=== PATIENT | female | born 1940 | race Caucasian/White ===

== ENCOUNTER → 2018-12-28 | Day surgery (SDC) | payer MEDICARE ==
[2018-12-28] VITALS (7 sets, daily range): BP systolic 153–169; BP diastolic 83–96
[~2018-12-28] VITALS: Ht 162.6 cm; Wt 49.9 kg
[~2018-12-28] MED LIST: ARICEPT5 MG ORAL; BSS 15ml BTL ONE; BSS 500ml btl ONE; DOXYCYCLINE HYC20 M1 PO; Dexamethasone 4mg/ml vial ONE; DiphenhydrAMINE 50mg/ml Inj IVP PRN; EPINEPHrine 1mg/1ml Amp ONE; LIPITOR40 MG ORAL; LR 1000ml 1,000 ML IVLG SCH; Lidocaine 1% MPF 10mg/ml 5ml ONE; MELATONIN5 M5 ORAL; PROZAC20 MG ORAL; Polysporin Opth Oint 3.5gm ONE; Povidone-Iodine 5% opth solution ONE; Pred Forte 1% Opth Susp 1ml ONE; SEROQUEL50 MG ORAL; SINEMET 25-1001 EAC1 ORAL; Sodium Hyaluronate 10 mg/ml 0.85ml ONE; Tobradex Opth Susp 2.5ml ONE; Tropicamide 1% Opth 15ml Soln ONE; VITAMIN B122500 MCG PO; VITAMIN D250000 UNI1 ORAL; XARELTO10 MG ORAL
--- NOTE | 2018-12-28 10:37 | Anethesia Preoperative Eval ---
Anesthesia Pre-op PMH/ROS General Date of Evaluation: Dec 28, 2018 Anesthesiologist: Cabrera ASA Score: ASA 3 Mallampati Score Class I : Soft palate, uvula, fauces, pillars visible Class II: Soft palate, uvula, fauces visible Class III: Soft palate, base of uvula visible Class IV: Only hard plate visible Mallampati Classification: Class III Surgeon: Gabriel Diagnosis: right cataract Surgical Procedure: right cataract extraction with iol Anesthesia History: none Family History: no anesthesia problems Allergies: Coded Allergies: DIVALPROEX SODIUM (Verified Allergy, Unknown, 12/28/18) VALPROIC ACID (Verified Allergy, Unknown, 12/28/18) Medications: see eMAR Patient NPO?: Yes NPO Date: Dec 27, 2018 NPO Time: 22:00 Past Medical History Cardiovascular: Reports: HTN, CAD, other - HLD; Denies: [place], valve dz, arrhythmia Pulmonary: Denies: asthma, COPD, PAOLA, other Gastrointestinal/Genitourinary: Reports: GERD; Denies: CRI, ESRD, other Neurologic/Psychiatric: Reports: dementia - parkinsons, other - migraines; Denies: CVA, depression/anxiety, TIA Endocrine: Denies: DM, hypothyroidism, steroids, other HEENT: Reports: cataract (L), cataract (R); Denies: glaucoma, TUOLUMNE (L), TUOLUMNE (R), other Hematology/Immune: Denies: anemia, DVT, bleeding disorder, other Musculoskeletal/Integumentary: Reports: OA, DJD; Denies: RA, DDD, edema, other PSxH Narrative: lumbar fusion Anesthesia Pre-op Phys. Exam Physician Exam see chart Constitutional: NAD Cardiovascular: RRR Respiratory: CTA Airway Exam Mallampati Score: Class II MO: limited ROM: limited Anesthesia Pre-op A/P Labs see chart Studies Pre-op Studies: EKG - sr Risk Assessment & Plan Assessment: ASA III Plan: MAC Status Change Before Surgery: No Pre-Antibiotics Drug: N/A Hayley John MD Dec 28, 2018 10:37
--- NOTE | 2018-12-28 10:38 | Pre-Procedure Note/Attestation ---
Pre-Procedure Note/Attestation Complete Prior to Procedure Planned Procedure: right - Removal of cataract and placement of intraocular lens, right eye Procedure Narrative: Removal of cataract and placment of intraocular lens, right eye Indications for Procedure Pre-Operative Diagnosis: Cataract, combined, right eye Attestation I attest that I discussed the nature of the procedure; its benefits; risks and complications; and alternatives (and the risks and benefits of such alternatives ), prior to the procedure, with the patient (or the patient's legal motor vehicle field representative). I attest that, if there was a reasonable possibility of needing a blood transfusion, the patient (or the patient's legal motor vehicle field representative) was given the [place] [facility] [employer] [facility] standardized written summary, pursuant to the Blas Darren Blood Safety Act ([place] Health and Safety Code # 1645, as amended). I attest that I re-evaluated the patient just prior to the surgery and that there has been no change in the patient's H&P, except as documented below: Chente Rios MD Dec 28, 2018 10:38
[2018-12-28] MEDS: Tobradex Opth Susp 2.5ml RIGHT EYE SCH ×3 (12:17→12:59)
[2018-12-28] MEDS: Cyclopentolate 1% Opth Sol 2ml RIGHT EYE SCH ×3 (12:17→12:58)
[2018-12-28] MEDS: Tropicamide 1% Opth 15ml Soln RIGHT EYE SCH ×3 (12:17→12:58)
[2018-12-28] MEDS: Akten 3.5% 1ml Btl RIGHT EYE SCH ×3 (12:17→12:59)
[2018-12-28] MEDS: Phenylephrine 10% Opth Soln 5ml RIGHT EYE SCH ×3 (12:17→12:59)
[2018-12-28] MEDS: Ciprofloxacin Opth Soln 2.5ml RIGHT EYE SCH ×3 (12:18→12:59)
[2018-12-28 12:41] LABS: ANION GAP 10 mmol/L (5-15); BLOOD UREA NITROGEN 22 mg/dL (7-18); CARBON DIOXIDE 27 MMOL/L (21-32); CHLORIDE 104 MMOL/L (98-107); CREATININE 1.5 MG/DL (0.55-1.30); POTASSIUM 4.9 MMOL/L (3.5-5.1); SODIUM 141 MMOL/L (136-145)
--- NOTE | 2018-12-28 14:39 | Immediate Post-Op Evaluation ---
Immediate Post-Op Evalulation Immediate Post-Op Evalulation Procedure: right cataract extraction with iol Date of Evaluation: Dec 28, 2018 Time of Evaluation: 14:41 IV Fluids: 50 Blood Products: 0 Estimated Blood Loss: min Urinary Output: 0 Blood Pressure Systolic: 153 Blood Pressure Diastolic: 84 Pulse Rate: 88 Respiratory Rate: 17 O2 Sat by Pulse Oximetry: 97 Temperature (Fahrenheit): 97.4 Pain Score (1-10): 0 Nausea: No Vomiting: No Complications 0 Patient Status: awake, reacts, patent, none Hydration Status: adequate Drug: N/A Hayley John MD Dec 28, 2018 14:39
--- NOTE | 2018-12-28 14:40 | 48 Hour Post Anesthesia Eval ---
Post Anesthesia Evaluation Procedure: right cataract extraction with iol Date of Evaluation: Dec 28, 2018 Airway: patent Nausea: No Vomiting: No Pain Intensity: 0 Hydration Status: adequate Cardiopulmonary Status: at baseline Mental Status/LOC: patient returned to baseline Post-Anesthesia Complications: 0 Follow-up care needed: ready to discharge Hayley John MD Dec 28, 2018 14:40
--- NOTE | 2018-12-28 14:40 | Brief Operative Note ---
Immediate Post Operative Note Operative Note Pre-op Diagnosis: Cataract, combined, right eye Post-op Diagnosis: same as pre-op plus - Miosis OD Surgeon: Tana Rios MD MS Lumber Press Operator: none Anesthesiologist: Dr Miranda Anesthesia: local, MAC Specimen: none Complications: none Fluids: see chart Estimated Blood Loss: minimal Implant(s) used?: Yes - willem ZCB00 22.5 Chente Rios MD Dec 28, 2018 14:40
--- NOTE | 2018-12-28 14:41 | Discharge Instructions ---
Discharge Instructions Discharge Instructions Follow Up Orders Leave shield in place (except to place eye drops) Continue preop eye drops Followup in Dr Rios's office tomorrow For Congestive Heart Failure Reminder Report to your physician any weight gain of 5 pounds or more in one week. Chente Rios MD Dec 28, 2018 14:41
--- NOTE | 2018-12-28 22:00 | Operative Note - Dictated ---
DATE OF OPERATION: 12/28/2018 SURGEON: Chente Rios M.D. INSURANCE ACCOUNT MANAGER SURGEON: None. ANESTHESIOLOGIST: Dr. Cabrera Miranda. ANESTHESIA: Local/standby/monitored anesthesia care. PREOPERATIVE DIAGNOSIS: Cataract, combined, right eye. POSTOPERATIVE DIAGNOSIS: 1. Cataract, combined, right eye. 2. Myosis, right eye. SPECIMENS: None. COMPLICATIONS: None. PROCEDURE: 1. Phacoemulsification of cataract, right eye. 2. Placement of posterior chamber intraocular lens, right eye (model Tecnis, model ZCB00, power 22.5). INDICATIONS FOR SURGERY: The patient has had painless progressive decrease in visual acuity in the right eye secondary to a cataract. The patient understands the risks of surgery including infection, bleeding, need for further surgery, loss of vision, no improvement in vision, loss of the eye, loss of life, glaucoma, retinal detachment, and understands these risks and elects to proceed with surgery. FINDINGS: The patient had a +3 to 4 nuclear sclerotic cataract as well as a +2 to 3 cortical cataract and myosis. OPERATIVE NOTE: After informed consent was obtained, the patient was brought to the operating room and placed in the supine position. Cardiac and respiratory monitors were attached. A time-out was performed and all criteria were met and everyone in the room agreed. The right eye was then draped and prepped in sterile manner for ocular surgery. A lid speculum was placed in the eye. A 1% lidocaine preservative-free was injected at the approximate 9 o'clock limbus. A conjunctiva peritomy from approximately 8:30 to 9:30 was made and dissected posteriorly. Hemostasis was maintained with bipolar cautery. A 2.6 mm limbal incision was made centered at approximately 9 o'clock and dissected anteriorly. It was noted that the pupil only dilated to approximately 4.5 mm and I decided to of the Malyugin ring. A paracentesis was made at approximately 12 o'clock and Shugarcaine was injected into the anterior chamber followed by Healon. The anterior chamber was then entered using a 2.6 mm keratome through the limbal incision. The Healon was injected into the anterior chamber and the 7.0 mm Malyugin ring was injected into the anterior chamber. This was hooked onto the pupillary margins at 4 points. An anterior capsulorrhexis was then able to be performed safely and was done without complications. Hydrodissection and hydrodelineation of the lens was then performed. The wound was then phacoemulsified using divide and conquer four-quadrant technique. Residual cortical material was then aspirated. Healon was injected into the anterior chamber and capsular bag. The lens was taken from its package, placed into the cartridge, and the tip of the cartridge was placed through the limbal incision. The lens was injected into the capsular bag and centered nicely with a Sinskey hook. Healon was left in the anterior chamber and capsular bag. The Malyugin ring was then removed. Healon was then aspirated from the anterior chamber and capsular bag. One 10-0 nylon interrupted suture was then placed through the limbal incision. The knot was rotated and buried. Care was taken during the entire procedure and not to touch the endothelium. The wounds were checked and found to be watertight. The lens was noted to have both haptics and the optic were in the capsular bag centered along the 9 o'clock to 3 o'clock axis. The conjunctiva was then closed with forceps cautery. The lid speculum and drapes were removed from the eye and drops of Pred Forte and ciprofloxacin were applied to the eye followed by TobraDex drops, and Maxitrol ointment. The shield was then placed without complications. The patient left the operating room awake, alert, and in stable condition. Chente Rios M.D. DR: NINFA JOB#: [id number] CC:
== END | disposition home or self-care (01) ==
LOC: SUR 11:30
DX: H25.11 Age-related nuclear cataract, right eye (principal); H25.011 Cortical age-related cataract, right eye; H57.03 Miosis; I11.9 Hypertensive heart disease without heart failure; E78.5 Hyperlipidemia, unspecified; K21.9 Gastro-esophageal reflux disease without esophagitis; F03.90 Unspecified dementia, unspecified severity, without behavioral disturbance, psychotic disturbance, mood disturbance, and anxiety; M19.90 Unspecified osteoarthritis, unspecified site; G20 Parkinson's disease; Z88.8 Allergy status to other drugs, medicaments and biological substances
CPT/HCPCS: 36415; 66982; 80048; J0171; J1100; V2632; 94003; 94150